=== PATIENT | female | born 1955 | race Caucasian/White ===

== ENCOUNTER 2018-06-20 12:58 | Emergency (ER) | payer OTHER ==
[~2018-06-20] VITALS: Ht 167.6 cm; Wt 98.4 kg
[~2018-06-20 12:58] MED LIST: ALLOPURINOL 10100 M1 PO; ANASPAZ0.125 MG SL; BENAZEPRIL HCL20 MG PO; CLONAZEPAM 1 MG1 M1 PO; COLESTIPOL HCL1 G1 PO; CYMBALTA30 MG PO; ERY-TAB333 MG PO; JANUMET 50-1,01 EACH PO; KLOR-CON 1010 MEQ PO; LEVOTHYROXINE 0.15MG PO; LOPRESSOR50 PO; MAXZIDE-25 MG1 EACH PO; MUCINEX TA600 MG/TA2 PO; NORCO 10-325 T1 EACH PO; NORCO 5-325 TA1 EACH PO; PATANASE30.5 GM NS; PLAVIX 75 MG TA75 M1 PO; PROTONIX40 M1 PO; TRANSDERM-SCO1 PATC1 TD; TRAZODONE HCL100 MG PO; TRINATE TABLET1 TAB PO; VALTREX1000 MG PO; VENTOLIN HFA 1818 GM INH; VITAMIN D 5050000 I1 PO; WELLBUTRIN XL150 MG PO; ZANAFLEX4 MG PO; ZYRTEC10 M5 PO
[2018-06-20 15:00] VITALS: BP 121/79
== END 2018-06-20 15:01 | disposition home or self-care (01) ==
LOC: ER 12:58
DX: S16.1XXA Strain of muscle, fascia and tendon at neck level, initial encounter (principal); S40.012A Contusion of left shoulder, initial encounter; Z88.5 Allergy status to narcotic agent; W01.198A Fall on same level from slipping, tripping and stumbling with subsequent striking against other object, initial encounter; Y92.009 Unspecified place in unspecified non-institutional (private) residence as the place of occurrence of the external cause; Y93.89 Activity, other specified; Y99.8 Other external cause status